=== PATIENT | male | born 1975 | race Caucasian/White ===

== ENCOUNTER → 2016-09-18 | Outpatient (CLI) | payer BC ==
[~2016-09-18] MED LIST: ALEVE220 MG; ALEVE220 MG OR; NORCO 5-325 TA1 EACH PO; ROBAXIN 750 MG750 M1 PO
== END ==
LOC: ULTRA 08:01
DX: N50.811 Right testicular pain (principal); N43.3 Hydrocele, unspecified

== ENCOUNTER → 2018-10-05 | Outpatient (CLI) | payer BC | LOC: RAD 09:28 | DX: M54.5 Low back pain (principal) ==

== ENCOUNTER → 2021-05-18 | Outpatient (CLI) | payer OTHER | LOC: CAT 08:11 | PROVIDERS: ATTEND Family Medicine | DX: Z13.6 Encounter for screening for cardiovascular disorders (principal) ==